=== PATIENT | male | born 2000 | race Caucasian/White ===

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

== ENCOUNTER 2021-10-23 09:11 | Inpatient (IN) ==
[2021-10-23 11:40] LABS: ABS Basophils 0.1 10^3/ul (0-0.2); ABS Lymphocytes 2.2 10^3/ul (1.0-4.8); ABS Monocytes 1.4 10^3/ul (0-0.8); ABS Neutrophils 10.1 10^3/ul (1.5-7.7); Eosinophil % 0.3 %; Hematocrit 40 % (42-52); Hemoglobin 13.9 g/dL (14.0-18.0); Mean Corpuscular HGB Conc 35 g/dL (31-36); Mean Corpuscular Hemoglobin 29 pg (27-31); Mean Corpuscular Volume 85 fL (80-94); Mean Platelet Volume 7.5 fL (7.4-10.4); Platelet Count 302 10^3/uL (150-450); Red Blood Count 4.75 10^6 /uL (4.18-5.48); Red Cell Distribution Width 13 % (10-15); White Blood Count 13.9 10^3/uL (3.5-10.8)
[2021-10-23 11:56] LABS: ALT 24 U/L (7-52); AST 24 U/L (13-39); Albumin 4.7 g/dL (3.2-5.2); Albumin/Globulin Ratio 1.5 (1-3); Alkaline Phosphatase 63 U/L (35-149); Anion Gap 6 mmol/L (2-11); Blood Urea Nitrogen 16 mg/dL (6-24); CO2 Carbon Dioxide 28 mmol/L (22-32); Calcium 9.8 mg/dL (8.6-10.3); Chloride 106 mmol/L (101-111); Globulin 3.2 g/dL (2-4); Glucose 83 mg/dL (70-100); Sodium 140 mmol/L (135-145); Total Protein 7.9 g/dL (6.4-8.9); eGFR CKD-EPI 128.2 (>60)
[2021-10-23] MEDS ORDERED: Diazepam INJ CARPUJECT 5 MG/ML IM ONE ×2 (12:12→13:20)
[2021-10-23] MEDS ORDERED: Haloperidol 5 mg/ml SDV IV/IM 5 MG/ML AMP IM ONE (12:12)
[2021-10-23 12:16] LABS: Acetaminophen < 15 mcg/mL; Alcohol, S < 13 mg/dL (<13); Salicylate < 2.50 mg/dL (<30)
[2021-10-23 12:32] LABS: TSH Ultra Thyroid Stim Horm 2.45 mcIU/mL (0.34-5.60)
[2021-10-23] MEDS ORDERED: Diazepam INJ CARPUJECT 5 MG/ML ONE (12:37)
[2021-10-23] MEDS ORDERED: Al Hydrox/Mg Hydrox/Simet LIQ 30 ML UDC PO PRN (13:11)
[2021-10-25] MEDS: Nicotine GUM 4MG FRUIT FLAVOR PO PRN ×3 (12:19→19:16)
[2021-10-25] MEDS: Nicotine PATCH 21 MG/24 HR PATCH TRANSDERM SCH (12:51)
[2021-10-26 08:34] LABS: HDL Cholesterol 33.2 mg/dL
[2021-10-26] MEDS: Nicotine PATCH 21 MG/24 HR PATCH TRANSDERM SCH (08:42)
[2021-10-26] MEDS: Nicotine GUM 4MG FRUIT FLAVOR PO PRN ×2 (08:43→15:40)
[2021-10-27] MEDS: Nicotine PATCH 21 MG/24 HR PATCH TRANSDERM SCH (08:33)
[2021-10-27] MEDS: Nicotine GUM 4MG FRUIT FLAVOR PO PRN (12:57)
[2021-10-28] MEDS: Nicotine GUM 4MG FRUIT FLAVOR PO PRN ×2 (08:19→10:52)
[2021-10-28] MEDS: Nicotine PATCH 21 MG/24 HR PATCH TRANSDERM SCH (08:20)
[2021-10-28 09:20] VITALS: BP 126/74
== END 2021-10-28 14:42 | disposition home or self-care (01) | DRG 753 ==
LOC: ED 09:11 → BSU 16:44
PROVIDERS: ADMIT Psychiatry & Neurology Psychiatry; ATTEND Psychiatry & Neurology Psychiatry